=== PATIENT | female | born 1940 | race African-American/Black ===

== ENCOUNTER 2017-05-10 13:39 | Emergency (ER) | payer OTHER ==
[2017-05-10 13:57] VITALS: BP 154/89; PULSE 93; TEMP 98.4; BMI 26.6
--- NOTE | 2017-05-10 14:16 | PDOC ---
History of Present Illness - General Chief Complaint: Psychiatric Stated Complaint: HEARING VOICES Time Seen by Provider: 05/10/17 14:00 - History of Present Illness Initial Comments: 05/10/17 14:11 Patient is a 76 y.o. female with a PMH of HTN, DLD and schizophrenia who presents to the ED today with her c/o 1 day h/o of hearing voices. The voices are intermittent and "babbling" Patient denies any associated SI/HI. As per patient's she stopped taking her Zisprasidone 2-3 months previous because it causes GI disturbances including abdominal cramping and GERD like symptoms. Patient was evaluated by a pyschiatrist at [facility] in June 2017 for a similar complaint @ which time she was started on the Ziprasidone. Past History - Past Medical History Allergies/Adverse Reactions: Allergies Allergy/AdvReac Type Severity Reaction Status Date / Time No Known Allergies Allergy Verified 05/10/17 13:43 Home Medications: Ambulatory Orders Olanzapine [Zyprexa -] 2.5 mg PO HS #14 tablet 05/10/17 COPD: No HTN: Yes Hypercholesterolemia: Yes Psychiatric Problems: Yes - Suicide/Smoking/Psychosocial Hx Smoking History: Never smoked Hx Alcohol Use: No Drug/Substance Use Hx: No Substance Use Type: None Review of Systems - Review of Systems Able to Perform ROS?: No *Physical Exam - Vital Signs Last Vital Signs Temp Pulse Resp BP Pulse Ox 98.4 F 93 H 18 154/89 99 05/10/17 13:44 05/10/17 13:44 05/10/17 13:44 05/10/17 13:44 05/10/17 13:44 - Physical Exam General Appearance: Yes: Nourished, Appropriately Dressed HEENT: positive: EOMI, CESAR Neck: positive: Trachea midline, Supple Respiratory/Chest: positive: Lungs Clear Cardiovascular: positive: S1, S2 Extremity: positive: Normal Capillary Refill, Normal Inspection Neurologic: positive: Alert, Motor Strength 5/5, Responsive, Depressed Affect Medical Decision Making - Medical Decision Making 05/10/17 14:14 Patient is a 76 y.o. female with a PMH of schizophrenia who presents with a 1 day h/o hearing voices. As per patient's she has been non-adherent to her Ziprasidone. Call placed to patient's psychiatrist (Dr. Azevedo, [facility], @ [phone]). Will give patient Olanazapine (less GI side effects) 2.5 mg QHS - 2 week supply and discharge home with instruction to follow up with Dr. Azevedo. Case d/w Dr. Stokes, Psychiatry, agrees with plan. 05/10/17 15:41 Case d/w Dr. Azevedo - patient has h/o non-adherence. Agrees with Olanazpine and d /c. Patient and patient's family @ bedside counseled on plan and importance of adherence to medication regimen. Patient discharged home with return precautions. *DC/Admit/Observation/Transfer Diagnosis at time of Disposition: Schizophrenia - Discharge Dispostion Disposition: HOME Condition at time of disposition: Good Admit: No - Prescriptions Prescriptions: Olanzapine [Zyprexa -] 2.5 mg PO HS #14 tablet - Referrals Referrals: Fracisco Mcdermott MD [Primary Care Provider] - - Patient Instructions Printed Discharge Instructions: DI for Schizophrenia Additional Instructions: A prescription for Olanazapine has been called to your pharmacy. Please take this medication as directed. Please make an appointment for psychiatric follow- up within the next 2 weeks. Return to the Emergency Department for any new/ worsening/concerning symptoms. - Post Discharge Activity
[2017-05-10] MEDS ORDERED: OLANZapine 2.5 MG TABLET PO ONE (14:35)
--- NOTE | 2017-05-10 15:05 | PDOC ---
Attending Attestation - Resident Resident Name: Shereen Tavares - ED Attending Attestation I have performed the following: I have examined & evaluated the patient, The case was reviewed & discussed with the resident, I agree w/resident's findings & plan, Exceptions are as noted - HPI HPI: 76 yo F history HTN, DLD, schizophrenia presents with 1 day of auditory hallucinations. She has history of similar symptoms in the past, has history of poor medication adherence. Denies SI/HI. No self-injurious behavior. - Physicial Exam PE: GENERAL: Awake, alert, and fully oriented, in no acute distress HEAD: No signs of trauma EYES: PERRLA, EOMI, sclera anicteric, conjunctiva clear ENT: Auricles normal inspection, hearing grossly normal, nares patent, oropharynx clear without exudates. Moist mucosa NECK: Normal ROM, supple, no lymphadenopathy, JVD, or masses LUNGS: Breath sounds equal, clear to auscultation bilaterally. No wheezes, and no crackles HEART: Regular rate and rhythm, normal S1 and S2, no murmurs, rubs or gallops ABDOMEN: Soft, nontender, normoactive bowel sounds. No guarding, no rebound. No masses EXTREMITIES: Normal range of motion, no edema. No clubbing or cyanosis. No cords, erythema, or tenderness NEUROLOGICAL: Cranial nerves II through XII grossly intact. Normal speech, normal gait SKIN: Warm, Dry, normal turgor, no rashes or lesions noted. PSYCHIATRIC: +AH. No VH, no SI, no HI. Normal affect. Thought process linear. - Medical Decision Making Pt with AH, history of schizophrenia with poor med compliance, which she states is a result of the side effects. Will d/w her psychiatrist regarding medication change.
[2017-05-10] MEDS ORDERED: OLANZapine 10 MG TABLET ONE (15:35)
== END 2017-05-10 16:08 | disposition home or self-care (01) ==
LOC: SUPCPDRO 13:39 → JER 13:39
DX: F20.9 Schizophrenia, unspecified (principal); I10 Essential (primary) hypertension; E78.5 Hyperlipidemia, unspecified
CPT/HCPCS: 99281-25

== ENCOUNTER 2018-03-29 13:14 | Day surgery (SDC) | payer OTHER ==
--- NOTE | 2018-03-29 03:03 | HP ---
History & Physical Update - History History: No Change - Physical Physical: No Change - Assessment Assessment: No Change - Plan Plan: No Change (No change in HP 03/27/18)
--- NOTE | 2018-03-29 08:14 | OP ---
Operative Note - Note: Operative Date: 03/29/18 Pre-Operative Diagnosis: Endometrial Hyperplasia Operation: Hysteroscopy. Hysteroscopic myomectomy. Suction DC Post-Operative Diagnosis: Same as Pre-op Anesthesia: General Operative Report Dictated: Yes
[2018-03-29 12:58] VITALS: BP 128/70; PULSE 70; TEMP 97.8
[~2018-03-29 13:14] MED LIST: ACETAMINOPHEN 325 MG TABLET (FP) PO PRN; IBUPROFEN 400 MG TABLET (FP) PO PRN; LACTATED RINGERS SOLUTION 1,000 ML IV SCH; ONDANSETRON 4 MG/2 ML VIAL IVPUSH PRN; oxyCODONE HCL 5 MG TABLET PO PRN
--- NOTE | 2018-03-30 10:53 | PATH ---
Surgical Pathology Report Patient Name: MILLER MEEKS [facility]. Rec. #: [id number] /Age/Gender: 1940 (Age: 77) / F Account: [id number] Location: [facility] Taken: 03/29/2018 Received: 03/29/2018 Reported: 03/30/2018 Physicians: Tyra Goff M.D. Specimen(s) Received ENDOMETRIAL CURETTINGS Clinical History Endometrial hyperplasia Final Diagnosis ENDOMETRIAL CURETTINGS, DILATION AND CURETTAGE: SCANT BENIGN CERVICAL TISSUE ADMIXED WITH BLOOD AND MUCUS. NO ENDOMETRIAL TISSUE IDENTIFIED. Electronically Signed Mary Kwon M.D. Gross Description Received in formalin labeled "endometrial curettings," is a 0.5 x 0.4 x 0.2 cm aggregate of tirado-brown soft tissue fragments. The formalin is filtered and the specimen is entirely submitted in one cassette. /03/29/2018 saudi03/29/2018
--- NOTE | 2018-04-12 14:13 | OP ---
DATE OF OPERATION: 03/29/2018 PREOPERATIVE DIAGNOSIS: Endometrial hyperplasia. OPERATION: Hysteroscopy, hysteroscopic myomectomy, suction dilatation and curettage. POSTOPERATIVE DIAGNOSES: Endometrial hyperplasia, cervical stenosis. SURGEON: Tyra Goff MD PROCEDURE: Patient was taken to the operating room, placed in dorsal lithotomy position, prepped and draped in usual sterile fashion. A timeout was performed in accordance with hospital regulation. Cervix was then dilated using lacrimal duct dilators. Patient was severely stenotic. Hysteroscope was then inserted. Possible severe adhesions, unable to determine whether was in the endometrial cavity. No pathology was really seen due to unclear whether in the endometrial cavity. Suction D&C was then performed. Patient had tolerated the procedure well, was taken to recovery room in stable condition. ESTIMATED BLOOD LOSS: Less than 5 mL. TYRA GOFF M.D. [id number]
== END 2018-03-29 13:16 | disposition home or self-care (01) ==
LOC: JASU-SURG 13:14
PROVIDERS: ATTEND Obstetrics & Gynecology
PROC: 0UDB8ZX Extraction of Endometrium, Via Natural or Artificial Opening Endoscopic, Diagnostic (ICD-10-PCS; principal; 2018-03-29 09:00)
DX: N85.00 Endometrial hyperplasia, unspecified (principal); N88.2 Stricture and stenosis of cervix uteri
CPT/HCPCS: 86850; 86900; 86901; 88305-TC; 94760

== ENCOUNTER 2019-05-22 20:16 | Emergency (ER) | payer OTHER ==
[2019-05-22 21:07] VITALS: BMI 28.2
--- NOTE | 2019-05-22 22:53 | PDOC ---
*Physical Exam - Vital Signs Last Vital Signs Temp Pulse Resp BP Pulse Ox 98.6 F 99 H 20 159/72 100 05/22/19 21:03 05/22/19 21:03 05/22/19 21:03 05/22/19 21:03 05/22/19 21:03 Medical Decision Making - Medical Decision Making 05/22/19 22:53 Patient seen by the advanced practice provider under my direct supervision. Ancillary testing reviewed as necessary. I agree with plan as outlined by the advanced practice provider. Discharge - Discharge Information Problems reviewed: Yes Clinical Impression/Diagnosis: Neck muscle spasm Condition: Stable Disposition: HOME - Additional Discharge Information Prescriptions: Acetaminophen [Tylenol] 650 mg PO TID #30 tablet Cyclobenzaprine HCl [Flexeril 10 mg] 10 mg PO BID #10 tablet - Follow up/Referral Referrals: Fracisco Mcdermott MD [Primary Care Provider] - - Patient Discharge Instructions Patient Printed Discharge Instructions: DI for Neck Pain Additional Instructions: Your Discharge Instructions: You must call primary care physician within 24 hours to arrange follow-up. Return to the Emergency Department with any new, persistent or worsening symptoms, for fever, chills, SOB, dizziness or any other concerning changes that may occur. - Post Discharge Activity
[2019-05-22] MEDS ORDERED: ACETAMINOPHEN 500 MG TABLET (FP) PO ONE (23:26)
--- NOTE | 2019-05-22 23:26 | PDOC ---
History of Present Illness - General Chief Complaint: Pain Stated Complaint: HYPERTENSION Time Seen by Provider: 05/22/19 22:53 History Source: Patient Exam Limitations: No Limitations - History of Present Illness Initial Comments: 05/22/19 23:20 Patient is a 78-year-old female with history of hypertension, hyperlipidemia, GERD, lumpectomy neck, here with complaints of neck pain, however report patient points to the upper back. Patient states she got up one morning with this pain and was unable to move her neck. States the pain is sharp 7.5/10 and is worse with movement of the neck. States that this evening she took her blood pressure and it was elevated at systolics 150s, so she called the ambulance. On arrival of the ambulance she states that the blood pressure went up and systolics was over 200. Denies fever, chills, nausea, vomiting PMD: Dr. Fracisco Mcdermott PMHX: as above PSOCHX: neg etoh, drug, cig ALL: NKDA GENERAL/CONSTITUTIONAL: [No fever or chills. No weakness. No weight change.] HEAD, EYES, EARS, NOSE AND THROAT: [No change in vision. No ear pain or discharge. No sore throat.] CARDIOVASCULAR: [No chest pain or shortness of breath.] RESPIRATORY: [No cough, wheezing, or hemoptysis.] GASTROINTESTINAL: [No nausea, vomiting, diarrhea or constipation. No rectal bleeding.] GENITOURINARY: [No dysuria, frequency, or change in urination.] MUSCULOSKELETAL: [No joint or muscle swelling or pain. (+) neck or back pain.] SKIN AND BREASTS: [No rash or easy bruising.] NEUROLOGIC: [No headache, vertigo, loss of consciousness, or loss of sensation.] PSYCHIATRIC: [No depression or anxiety.] ENDOCRINE: [No increased thirst. No abnormal weight change.] HEMATOLOGIC/LYMPHATIC: [No anemia, easy bleeding, or history of blood clots.] ALLERGIC/IMMUNOLOGIC: [No hives or skin allergy. No latex allergy.] GENERAL: [The patient is awake, alert, and fully oriented, in no acute distress. ] HEAD: [Normal with no signs of trauma.] EYES: [Pupils equal, round and reactive to light, extraocular movements intact, sclera anicteric, conjunctiva clear.] ENT: [Ears normal, nares patent, oropharynx clear without exudates. Moist mucous membranes.] NECK: [Decreased range of motion, supple without lymphadenopathy, tenderness to the neck muscles, nontender midline, JVD, or masses.] LUNGS: [Breath sounds equal, clear to auscultation bilaterally. No wheezes, and no crackles.] HEART: [Regular rate and rhythm, normal S1 and S2 without murmur, rub.] ABDOMEN: [Soft, nontender, normoactive bowel sounds. No guarding, no rebound. No masses.] EXTREMITIES: [Normal range of motion, no edema. No clubbing or cyanosis. No cords, erythema, or tenderness.] NEUROLOGICAL: [Cranial nerves II through XII grossly intact. Normal speech, normal gait.] PSYCH: [Normal mood, normal affect.] SKIN: [Warm, Dry, normal turgor, no rashes or lesions noted.] Past History - Past Medical History Allergies/Adverse Reactions: Allergies Allergy/AdvReac Type Severity Reaction Status Date / Time No Known Allergies Allergy Verified 03/29/18 07:50 Home Medications: Ambulatory Orders Olanzapine [Zyprexa -] 2.5 mg PO HS #14 tablet 05/10/17 Amlodipine/Valsartan/Hcthiazid [Odagx-Maluc-Boph 10-160-12.5MG] 1 each PO DAILY 03/27/18 Ezetimibe [Zetia -] 10 mg PO DAILY 03/27/18 Ibuprofen [Motrin -] 600 mg PO TID #21 tablet 03/29/18 Acetaminophen [Tylenol] 650 mg PO TID #30 tablet 05/22/19 Cyclobenzaprine HCl [Flexeril 10 mg] 10 mg PO BID #10 tablet 05/22/19 COPD: No HTN: Yes Hypercholesterolemia: Yes Psychiatric Problems: Yes - Surgical History Orthopedic Surgery: Yes (ORIF wrist) - Psycho Social/Smoking Cessation Hx Smoking History: Never smoked Have you smoked in the past 12 months: No If you are a former smoker, when did you quit?: 20+ years ago Information on smoking cessation initiated: No Hx Alcohol Use: No Drug/Substance Use Hx: No Substance Use Type: None *Physical Exam - Vital Signs Last Vital Signs Temp Pulse Resp BP Pulse Ox 98.8 F 102 H 20 171/87 H 96 05/22/19 23:15 05/22/19 23:15 05/22/19 21:03 05/22/19 23:15 05/22/19 23:15 Medical Decision Making - Medical Decision Making 05/22/19 23:20 Patient is a 78-year-old female with history of hypertension, hyperlipidemia, GERD, lumpectomy neck, here with complaints of neck pain, however report patient points to the upper back. Patient states she got up one morning with this pain and was unable to move her neck. States the pain is sharp 7.5/10 and is worse with movement of the neck. States that this evening she took her blood pressure and it was elevated at systolics 150s, so she called the ambulance. On arrival of the ambulance she states that the blood pressure went up and systolics was over 200. Denies fever, chills, nausea, vomiting. Patient symptoms consistent with musculoskeletal pain, neck spasm Tylenol and Flexeril Reassess I discussed the physical exam findings, ancillary test results and final diagnoses with the patient. I answered all of the patient's questions. The patient was satisfied with the care received and felt comfortable with the discharge plan and treatment plan. The Patient agrees to follow up with the primary care physician within 24-72 hours. Discharge - Discharge Information Problems reviewed: Yes Clinical Impression/Diagnosis: Neck muscle spasm Condition: Stable Disposition: HOME - Additional Discharge Information Prescriptions: Acetaminophen [Tylenol] 650 mg PO TID #30 tablet Cyclobenzaprine HCl [Flexeril 10 mg] 10 mg PO BID #10 tablet - Follow up/Referral Referrals: Fracisco Mcdermott MD [Primary Care Provider] - - Patient Discharge Instructions Patient Printed Discharge Instructions: DI for Neck Pain Additional Instructions: Your Discharge Instructions: You must call primary care physician within 24 hours to arrange follow-up. Return to the Emergency Department with any new, persistent or worsening symptoms, for fever, chills, SOB, dizziness or any other concerning changes that may occur. - Post Discharge Activity
[2019-05-22] MEDS ORDERED: CYCLOBENZAPRINE HCL 10 MG TABLET (FP) PO ONE (23:27)
[2019-05-22 23:46] VITALS: BP 153/81; PULSE 98; TEMP 98.4
[2019-05-22] MEDS ORDERED: CYCLOBENZAPRINE HCL 10 MG TABLET (FP) ONE (23:59)
[2019-05-22] MEDS ORDERED: ACETAMINOPHEN 325 MG TABLET (FP) ONE (23:59)
== END 2019-05-23 00:15 | disposition home or self-care (01) ==
LOC: JER 20:16
DX: M62.838 Other muscle spasm (principal); I10 Essential (primary) hypertension; E78.5 Hyperlipidemia, unspecified; K21.9 Gastro-esophageal reflux disease without esophagitis
CPT/HCPCS: 99282-25

== ENCOUNTER 2023-08-31 11:25 | Observation (INO) | payer OTHER ==
[2023-08-31 13:49] LABS: EPI CELLS 1 /uL (0-25.1); HYALINE CASTS 0 /uL (0-3.1); PH,URINE 7.5 (5.0-8.0); URINE APPEARANCE CLEAR; URINE BACTERIA 6 /uL (0-1359); URINE BILIRUBIN NEGATIVE (NEGATIVE); URINE COLOR YELLOW; URINE GLUCOSE (UA) NEGATIVE (NEGATIVE); URINE KETONE NEGATIVE (NEGATIVE); URINE LEUK ESTERASE TRACE (NEGATIVE); URINE NITRITE NEGATIVE (NEGATIVE); URINE PROTEIN NEGATIVE (NEGATIVE); URINE RBC 5 /uL (0-23.9); URINE UROBILINOGEN 0.2 mg/dL (0.2-1.0); URINE WBC 1 /uL (0-25.8)
[2023-08-31] MEDS ORDERED: ACETAMINOPHEN INJECTION 100 ML IVPB ONE (14:17)
[2023-08-31] MEDS: SODIUM CHLORIDE 0.9% 500 ML INFUS.BAG IV ONE ×2 (14:21→14:22)
[2023-08-31] MEDS: ACETAMINOPHEN 1000 MG/100 ML BAG IVPB ONE (14:22)
[2023-08-31 14:25] LABS: INR 1.16 (0.83-1.09)
[2023-08-31 14:28] LABS: ACTIVATED PTT 34.2 SECONDS (25.2-36.5)
[2023-08-31 14:36] LABS: BASO % 1.7 % (0-2.0); EOS % 3.1 % (0-4.5); HEMATOCRIT 41.1 % (32.4-45.2); HEMOGLOBIN 13.8 GM/dL (10.7-15.3); MCH 30.6 pg (25.7-33.7); MCHC 33.5 g/dl (32.0-36.0); MEAN CELL VOLUME 91.4 fl (80-96); MEAN PLT VOLUME 10.7 fl (7.5-11.1); MONO % 11.3 % (3.8-10.2); NEUT % 53.9 % (42.8-82.8); PLATELET COUNT 206 10^3/uL (134-434); RBC 4.49 M/mm3 (3.60-5.2); RDW 15.3 % (11.6-15.6); WHITE BLOOD COUNT 9.9 K/mm3 (4.0-10.0)
[2023-08-31 14:44] LABS: POTASSIUM 3.2 mmol/L (3.5-5.1)
[2023-08-31 14:46] LABS: ALBUMIN 3.6 g/dl (3.4-5.0); CALCIUM 9.3 mg/dL (8.5-10.1)
[2023-08-31 14:47] LABS: BLOOD UREA NITROGEN 7.8 mg/dL (7-18)
[2023-08-31 14:49] LABS: CREATININE 0.7 mg/dL (0.55-1.3)
[2023-08-31 14:51] LABS: BILIRUBIN,TOTAL 0.6 mg/dL (0.2-1); TOT PROT 7.9 g/dl (6.4-8.2)
[2023-08-31] MEDS ORDERED: CEFTRIAXONE 1 GM/50 ML BAG ONE (15:28)
[2023-08-31] MEDS ORDERED: AZITHROMYCIN IVPB 500 MG/250 ML BAG IVPB ONE (15:28)
[2023-08-31] MEDS: CEFTRIAXONE 1 GM in DEXTROSE 5%-WATER - 100 ML IVPB ONE (15:32)
[2023-08-31 15:37] LABS: POTASSIUM 3.2 mmol/L (3.5-5.1)
[2023-08-31 15:38] LABS: CALCIUM 9.3 mg/dL (8.5-10.1)
[2023-08-31 15:39] LABS: BLOOD UREA NITROGEN 7.4 mg/dL (7-18); MAGNESIUM 1.9 mg/dL (1.8-2.4)
[2023-08-31 15:42] LABS: CREATININE 0.7 mg/dL (0.55-1.3)
[2023-08-31] MEDS: AZITHROMYCIN IVPB 500 MG in DEXTROSE 5%-WATER - 250 ML IVPB ONE (15:43)
[2023-08-31] MEDS ORDERED: POTASSIUM CHLORIDE TABS 20 MEQ TABLET.ER (FP) PO ONE (15:45)
[2023-08-31] MEDS: POTASSIUM CHLORIDE TABS 10 MEQ TABLET.ER (FP) PO ONE (15:49)
[2023-08-31 20:45] VITALS: BMI 28.1
[2023-08-31] MEDS: HEPARIN NA (PORCINE) 5,000 UNITS/ML 1ML VIAL SQ SCH (21:16)
[2023-08-31] MEDS: POTASSIUM CHLORIDE ORAL LIQUID 20 MEQ/15 ML PO SCH (21:16)
[2023-08-31] MEDS: OLANZapine 2.5 MG TABLET PO SCH (21:16)
[2023-09-01 08:32] LABS: BASO % 1.1 % (0-2.0); EOS % 3.4 % (0-4.5); HEMATOCRIT 40.4 % (32.4-45.2); LYMPH % 42.3 % (8-40); MCH 29.8 pg (25.7-33.7); MCHC 32.2 g/dl (32.0-36.0); MEAN CELL VOLUME 92.4 fl (80-96); MEAN PLT VOLUME 11.9 fl (7.5-11.1); MONO % 11.9 % (3.8-10.2); NEUT % 41.3 % (42.8-82.8); PLATELET COUNT 214 10^3/uL (134-434); RBC 4.37 M/mm3 (3.60-5.2); RDW 14.8 % (11.6-15.6); WHITE BLOOD COUNT 8.6 K/mm3 (4.0-10.0)
[2023-09-01 09:00] LABS: ALBUMIN 3.4 g/dl (3.4-5.0); BLOOD UREA NITROGEN 10.6 mg/dL (7-18); CALCIUM 9.7 mg/dL (8.5-10.1)
[2023-09-01 09:03] LABS: CREATININE 0.8 mg/dL (0.55-1.3)
[2023-09-01 09:05] LABS: TOT PROT 7.5 g/dl (6.4-8.2)
[2023-09-01 10:52] VITALS: BP 165/69; PULSE 83; RESP 18; TEMP 97.9
[2023-09-01] MEDS: EZETIMIBE 10 MG TABLET (FP) PO SCH (11:03)
[2023-09-01] MEDS ORDERED: AMOX TR/POT CLAV 875MG/125MG TABLETS (FP) PO SCH (17:30)
[2023-09-01] MEDS ORDERED: ATORVASTATIN CA 10 MG TABLET (FP) PO SCH ×2 (22:00)
== END 2023-09-01 14:05 | disposition home or self-care (01) ==
LOC: JER 11:25 → JERBED 15:55 → J8W 20:16
PROVIDERS: ADMIT Internal Medicine; ATTEND Internal Medicine
PROC: 3E033NZ Introduction of Analgesics, Hypnotics, Sedatives into Peripheral Vein, Percutaneous Approach (ICD-10-PCS; principal; 2023-08-31)
PROC: 3E03329 Introduction of Other Anti-infective into Peripheral Vein, Percutaneous Approach (ICD-10-PCS; 2023-08-31)
PROC: 3E03329 Introduction of Other Anti-infective into Peripheral Vein, Percutaneous Approach (ICD-10-PCS; 2023-08-31)
PROC: 3E023GC Introduction of Other Therapeutic Substance into Muscle, Percutaneous Approach (ICD-10-PCS; 2023-08-31)
PROC: 3E0337Z Introduction of Electrolytic and Water Balance Substance into Peripheral Vein, Percutaneous Approach (ICD-10-PCS; 2023-08-31)
DX: F25.9 Schizoaffective disorder, unspecified (principal); E78.5 Hyperlipidemia, unspecified; E87.6 Hypokalemia; F32.A Depression, unspecified; G47.9 Sleep disorder, unspecified; F39 Unspecified mood [affective] disorder; R01.1 Cardiac murmur, unspecified; I10 Essential (primary) hypertension; Z87.891 Personal history of nicotine dependence; R53.1 Weakness
CPT/HCPCS: 0241U-QW; 36415; 70450-TC; 71045-TC-FY; 80048; 80053; 80061; 81003; 82550; 83036; 83735; 83880; 84443; 84484; 85025; 85610; 85730; 87086; 93005; 93010; 93306-TC; 96365; 96368; 96372; 96375; 99285-25; G0378; J0131; J1644

== ENCOUNTER → 2023-11-06 | Day surgery (SDC) | payer OTHER | END | disposition home or self-care (01) | LOC: JRADIR 10:10 | PROVIDERS: ATTEND Nurse Practitioner Family | PROC: 0G9G3ZX Drainage of Left Thyroid Gland Lobe, Percutaneous Approach, Diagnostic (ICD-10-PCS; principal; 2023-11-06) | DX: E04.1 Nontoxic single thyroid nodule (principal) | CPT/HCPCS: 10005; 76942; 88173; 88305-TC ==